=== PATIENT | male | born 1975 | race Caucasian/White ===

== ENCOUNTER 2019-06-01 12:30 | Emergency (ER) | payer OTHER ==
[~2019-06-01] VITALS: Ht 193 cm; Wt 142.9 kg
[2019-06-01 12:35] VITALS: BP 130/82
--- NOTE | 2019-06-01 12:43 | NUR ---
PT AMBULATED TO ER BED 04
[2019-06-01] MEDS ORDERED: MORPHINE SULFATE 4 MG/ML SYR IM ONE (12:50)
--- NOTE | 2019-06-01 12:57 | NUR ---
C/O R FOOT PAIN 07/10 X1 WEEK. PT DENIES INJURY. PT STATES HE HAS HAD "SHINGLES" MULTIPLE TIMES AND HE TAKES ACYCLOVIR DAILY FOR IT. PT WAS SEEN AT URGENT [facility]ARE Tuesday05/29/19 AND EVALUATED AND TOLD HE HAS A FATTY LIVER, AND OTHER THAN THAT THERE IS NO PROBLEM. PER PT, PAIN GETS WORSE WHILE WALKING OR TO TOUCH 07/10. 27/08 AT NORMAL POSITION. DARA ANY ALLERGIC TO MEDS. AAOX4, DENIES ANY SOB, CP , FEVER OR CHILLS. ER MD ASSESING PT. PT LYING COMFORTABLY IN HIS BED. HX: ANXIETY RX: ZOLOFT, ACYCLOVIR
[2019-06-01 14:26] VITALS: BP 115/64
--- NOTE | 2019-06-01 14:26 | NUR ---
Patient discharged with v/s stable. Written and verbal after care instructions given and explained. Patient alert, oriented and verbalized understanding of instructions. Ambulatory with steady gait. All questions addressed prior to discharge. ID band removed. Patient advised to follow up with PMD. Rx of BACTRIM DS, KEFLEX given. Patient educated on indication of medication including possible reaction and side effects. Opportunity to ask questions provided and answered.
== END 2019-06-01 14:26 | disposition home or self-care (01) ==
LOC: MED 12:30
DX: L03.115 Cellulitis of right lower limb (principal)
CPT/HCPCS: 73630; 93971; 96372; 99284; J2270; Q0092